=== PATIENT | female | born 1965 | race Caucasian/White ===

== ENCOUNTER 2017-12-31 09:10 | Emergency (ER) | payer MEDICAID ==
[2017-12-31 09:25] VITALS: BP 115/82; PULSE 80; RESP 20; O2SAT 96
[2017-12-31] MEDS ORDERED: chlordiazePOXIDE 25 MG CAP PO ONE (09:48)
--- NOTE | 2017-12-31 09:56 | EDPHY ---
H & P Stated Complaint: Wants alc detox;last drank last jasen;other c/o:?bronchitis,R thumb lesions Time Seen by Provider: 12/31/17 09:56 HPI/ROS: HPI: Chief Complaint: Wants alc detox;last drank last jasen;other c/o:?bronchitis,R thumb lesions Location:psych Quality: Requesting alcohol detox Duration: Today Signs and Symptoms: no fever, + nausea, no vomiting, no hematemesis, no blood in stool, no abdominal bloating, no diarrhea, no back pain, no urinary symptoms , no vaginal bleeding/discharge, no indigestion, no chest pain, no shortness of breath, no SI, no HI Timing: Acute on chronic Severity: Moderate Context: Patient has been drinking for 20 years approximately 2 bottles of wine a day presents with requesting alcohol detox. She reports her last drink was around 5:00 p.m. yesterday evening. She complains of anxiousness, mild tremors, dull headache, nausea. She denies any suicidal ideation, homicidal ideation, hallucinations. She has never experienced alcohol withdrawal seizures. Her last rehab was approximately several years ago and was 4 days in length. She reports after discharge from rehab she immediately started drinking again. She also is a smoker and complains of a chronic cough and wheezing. She denies fever/chest pain/shortness of breath/lower extremity edema or swelling. She has never been diagnosed with asthma or COPD and does not have any inhalers. She reports that she is coughing so hard that she vomits for the last 1 day. Denies any any blood in stool or hematemesis. Denies abdominal pain. Denies recreational drug use. Modifying Factors: None Comment: ROS: see HPI Constitutional: No fever, no chills, no weight loss Eyes: No blurred vision Respiratory: No shortness of breath, + cough Cardiovascular: No chest pain, no palpitations Gastrointestinal: + nausea, + vomiting, no diarrhea, no hematemesis, no blood in stool Genitourinary: No dysuria, no blood in urine Extremities: No myalgias, no edema Neurologic: No weakness, no numbness Skin: No rashes, no petechiae Hematologic: No bruising, no bleeding MEDICAL/SURGICAL/SOCIAL HISTORY: Medical history: Alcoholism, tobacco user Surgical history: Denies Social history: Single. CONSTITUTIONAL: Slightly anxious chronically ill-appearing adult female who appears older than stated age, smells heavily of tobacco, awake and alert, no obvious distress HEENT: Atraumatic and normocephalic, PERRL, EOMI. Tympanic membranes clear. Oropharynx clear, no exudate and moist pink mucosa. Airway patent. No lymphadenopathy. No meningismus. Cardiovascular: Normal S1/S2, regular rate, regular rhythm, without murmur rub or gallop. PULMONARY/CHEST: Symmetrical and nontender. Faint expiratory wheezing bilaterally. Good air movement. No accessory muscle usage. ABDOMEN: Soft, nondistended, nontender, no rebound, no guarding, no peritoneal signs, no masses or organomegaly. No CVAT. EXTREMITIES: 2/2 pulses, strength 5/5, no deformities, no clubbing, no cyanosis or edema. NEUROLOGICAL: no focal neuro deficits. GCS 15. SKIN: Warm and dry, no erythema. no rash. Good capillary refill. Source: Patient, Family (Girlfriend) Exam Limitations: No limitations - Personal History LMP (Females 10-55): Post Menopausal Current Tetanus Diphtheria and Acellular Pertussis (TDAP): Unsure - Medical/Surgical History Hx Asthma: No Hx Chronic Respiratory Disease: No Hx Diabetes: No Hx Cardiac Disease: No Hx Renal Disease: No Hx Cirrhosis: No Hx Alcoholism: Yes Hx HIV/AIDS: No Hx Splenectomy or Spleen Trauma: No Other PMH: ETOH - Social History Smoking Status: Current every day smoker Constitutional: Initial Vital Signs Heart Rate 80 12/31/17 09:15 Respiratory Rate 20 12/31/17 09:15 Blood Pressure 115/82 H 12/31/17 09:15 O2 Sat (%) 96 12/31/17 09:15 O2 Delivery Mode Room Air Allergies/Adverse Reactions: Milk Containing Products [dairy] Allergy (Mild, Verified 12/31/17 09:22) Home Medications: Medication Instructions Recorded Estradiol 07/03/16 Albuterol [Proventil] 1 - 2 puffs IH Q4 PRN #1 aerosol 12/31/17 Benzonatate [Tessalon Pearles (RX)] 100 mg PO Q6 PRN #12 cap 12/31/17 Medical Decision Making - Diagnostics Imaging Results: Imaging Impressions Chest X-Ray 12/31/17 09:47 Impression: Mild peribronchial thickening suggesting airways disease/bronchitis. ED Course/Re-evaluation: Chest x-ray, labs, DuoNeb, IV and oral medications CIWA 5; given p. o. Librium and IV Ativan 0.5 mg. No signs of alcohol withdrawal seizures. Patient given DuoNeb with improved aeration and Tessalon Perles with improvement in cough. Chest x-ray shows bronchitic changes but no opacity, no a few, no pneumothorax, no widened mediastinum. No hypoxia/respiratory distress. No antibiotics indicated. Given albuterol inhaler and Tessalon Perles. Patient does not meet M1 hold or Detainer criteria. Patient has no ataxia, ambulatory without assistance, will be discharged to the [facility] with Librium prepack This patient was seen under the supervision of my secondary supervising physician. I evaluated care for this patient independently. Differential Diagnosis: Differential diagnosis includes but is not limited to alcohol intoxication, alcohol abuse, alcohol withdrawal, bronchitis, COPD, pneumonia. - Data Points Laboratory Results: Laboratory Results 12/31/17 10:32 12/31/17 10:32 12/31/17 12/31/17 10:32 10:32 WBC 4.31 10^3/uL 10^3/uL (3.80-9.50) RBC 3.67 10^6/uL L 10^6/uL (4.18-5.33) Hgb 13.7 g/dL g/dL (12.6-16.3) Hct 38.0 % % (38.0-47.0) MCV 103.5 fL H fL (81.5-99.8) MCH 37.3 pg H pg (27.9-34.1) MCHC 36.1 g/dL g/dL (32.4-36.7) RDW 12.3 % % (11.5-15.2) Plt Count 305 10^3/uL 10^3/uL (150-400) MPV 8.5 fL L fL (8.7-11.7) Neut % (Auto) 74.2 % % (39.3-74.2) Lymph % (Auto) 13.7 % L % (15.0-45.0) Haines % (Auto) 8.6 % % (4.5-13.0) Eos % (Auto) 0.7 % % (0.6-7.6) Baso % (Auto) 2.3 % H % (0.3-1.7) Nucleat RBC Rel Count 0.0 % % (0.0-0.2) Absolute Neuts (auto) 3.20 10^3/uL 10^3/uL (1.70-6.50) Absolute Lymphs (auto) 0.59 10^3/uL L 10^3/uL (1.00-3.00) Absolute Monos (auto) 0.37 10^3/uL 10^3/uL (0.30-0.80) Absolute Eos (auto) 0.03 10^3/uL 10^3/uL (0.03-0.40) Absolute Basos (auto) 0.10 10^3/uL 10^3/uL (0.02-0.10) Absolute Nucleated RBC 0.00 10^3/uL 10^3/uL (0-0.01) Immature Gran % 0.5 % % (0.0-1.1) Immature Gran # 0.02 10^3/uL 10^3/uL (0.00-0.10) Sodium 139 mEq/L mEq/L (135-145) Potassium 4.2 mEq/L mEq/L (3.5-5.2) Chloride 102 mEq/L mEq/L (97-110) Carbon Dioxide 19 mEq/l L mEq/l (22-31) Anion Gap 18 mEq/L H mEq/L (8-16) BUN 12 mg/dL mg/dL (7-23) Creatinine 0.6 mg/dL mg/dL (0.6-1.0) Estimated GFR > 60 Glucose 80 mg/dL mg/dL (70-100) Calcium 9.4 mg/dL mg/dL (8.5-10.4) Ethyl Alcohol 13 mg/dL H mg/dL (0-10) Medications Given: Discontinued Medications Albuterol/Ipratropium (Duoneb) 3 ml IH EDNOW ONE Stop: 12/31/17 10:02 Last Admin: 12/31/17 10:16 Dose: 3 ml Benzonatate (Tessalon Pearles) 200 mg PO EDNOW ONE Stop: 12/31/17 10:02 Last Admin: 12/31/17 10:16 Dose: 200 mg Chlordiazepoxide (Librium 25 Mg Prepack#6) 1 btl TAKEHOME EDNOW ONE Stop: 12/31/17 11:50 Last Admin: 12/31/17 12:12 Dose: 1 btl Chlordiazepoxide HCl (Librium) 25 mg PO EDNOW ONE Stop: 12/31/17 09:49 Last Admin: 12/31/17 10:16 Dose: 25 mg Lorazepam (Ativan Injection) 0.5 mg IVP EDNOW ONE Stop: 12/31/17 10:00 Last Admin: 12/31/17 10:15 Dose: 0.5 mg Ondansetron HCl (Zofran) 4 mg IVP EDNOW ONE Stop: 12/31/17 10:00 Last Admin: 12/31/17 10:15 Dose: 4 mg Departure - Departure Disposition: Other Psych, Not [facility] Clinical Impression: Alcohol abuse, Bronchitis due to tobacco use Condition: Good Instructions: Alcohol Use Disorder (ED) Additional Instructions: Please refrain from drinking alcohol and smoking cigarettes. Medically clear to be discharged to the [facility]. Referrals: [facility] 24 Hours [Outside] - As per Instructions Prescriptions: Albuterol [Proventil] 1 - 2 puffs IH Q4 PRN #1 aerosol PRN Reason: Short Of Breath/Dyspnea Benzonatate [Tessalon Pearles (RX)] 100 mg PO Q6 PRN #12 cap PRN Reason: Cough, Moderate
[2017-12-31] MEDS ORDERED: ONDANSETRON 4 MG/2 ML VIAL IVP ONE (09:59)
[2017-12-31] MEDS ORDERED: LORazepam 2 MG/ML INJ IVP ONE (09:59)
[2017-12-31] MEDS ORDERED: IPRATROPIUM/ALBUTEROL 3 ML DEYVIAL IH ONE (10:01)
[2017-12-31] MEDS ORDERED: BENZONATATE 100 MG CAP PO ONE (10:01)
[2017-12-31 10:52] LABS: PLATELET COUNT 305 10^3/uL (150-400)
[2017-12-31] MEDS ORDERED: CHLORDIAZEPOXIDE 25MG PREPK#6 BTL TAKEHOME ONE (11:49)
== END 2017-12-31 12:24 ==
LOC: EEVIPCON 09:10
DX: J40 Bronchitis, not specified as acute or chronic (principal); F10.10 Alcohol abuse, uncomplicated; F17.200 Nicotine dependence, unspecified, uncomplicated
CPT/HCPCS: 96374; G0480; J2060; J2405

== ENCOUNTER 2019-04-28 13:20 | Emergency (ER) | payer MEDICAID ==
[2019-04-28 13:34] VITALS: BP 106/87
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
== END 2019-04-28 14:10 ==
LOC: EDUNIT#
DX: S00.81XA Abrasion of other part of head, initial encounter (principal); W22.8XXA Striking against or struck by other objects, initial encounter